=== PATIENT | female | born 1975 | race Caucasian/White ===

== ENCOUNTER → 2016-07-13 10:58 | Outpatient (CLI) | payer BC ==
[2011-09-17 12:06] VITALS: BMI 21.8
[2016-07-13 11:48] LABS: ALBUMIN 3.9 g/dL (3.4-5.0); BILIRUBIN - DIRECT 0.07 mg/dL (0.00-0.30); BILIRUBIN - INDIRECT 0.23 mg/dL (0.00-1.00); BILIRUBIN - TOTAL 0.3 mg/dL (0.2-1.3); PROTEIN - SERUM 6.9 g/dL (6.4-8.2)
== END | disposition home or self-care (01) ==
LOC: D.CT 06-19 13:30 → D.LAB 06-19 14:00
PROVIDERS: Internal Medicine Gastroenterology
DX: R07.9 Chest pain, unspecified (principal); R11.0 Nausea; R10.13 Epigastric pain

== ENCOUNTER → 2016-10-22 12:06 | Outpatient (CLI) | payer BC ==
[2011-09-17 12:06] VITALS: BMI 21.8
== END | disposition home or self-care (01) ==
LOC: D.NM 10-20 08:30
DX: R10.11 Right upper quadrant pain (principal); R10.13 Epigastric pain; R11.0 Nausea